=== PATIENT | male | born 1985 | race Two or more races ===

== ENCOUNTER 2018-03-28 14:12 | Emergency (ER) | payer OTHER ==
[2018-03-28 14:24] VITALS: BP 125/58; PULSE 55; TEMP 97.8; BMI 30.8
--- NOTE | 2018-03-28 14:39 | PDOC ---
History of Present Illness - General Chief Complaint: Pain Stated Complaint: UPPER GI PAIN Time Seen by Provider: 03/28/18 14:26 History Source: Patient - History of Present Illness Timing/Duration: reports: other (1 month) Pain Radiation: reports: epigastric Past History - Past Medical History Allergies/Adverse Reactions: Allergies Allergy/AdvReac Type Severity Reaction Status Date / Time No Known Allergies Allergy Verified 03/28/18 14:24 Home Medications: Ambulatory Orders Ranitidine HCl [Zantac] 150 mg PO BID #30 tablet 03/28/18 COPD: No - Suicide/Smoking/Psychosocial Hx Smoking History: Never smoked Have you smoked in the past 12 months: No Information on smoking cessation initiated: No Hx Alcohol Use: No Drug/Substance Use Hx: No Review of Systems - Review of Systems Constitutional: No: Chills, Fever ABD/GI: No: Blood Streaked Bowels, Constipated, Diarrhea, Nausea, Rectal Bleeding, Vomiting, Tarry Stools : No: Dysuria, Flank Pain, Hematuria *Physical Exam - Vital Signs Last Vital Signs Temp Pulse Resp BP Pulse Ox 97.8 F 55 L 16 125/58 L 100 03/28/18 14:17 03/28/18 14:17 03/28/18 14:17 03/28/18 14:17 03/28/18 14:17 - Physical Exam General Appearance: Yes: Appropriately Dressed. No: Apparent Distress HEENT: positive: Normal Voice Neck: positive: Supple Respiratory/Chest: positive: Lungs Clear, Normal Breath Sounds. negative: Respiratory Distress Cardiovascular: positive: Regular Rate, S1, S2 Gastrointestinal/Abdominal: positive: Normal Bowel Sounds, Soft. negative: Tender, Distended, Guarding, Rebound Musculoskeletal: negative: CVA Tenderness Integumentary: positive: Dry, Warm Neurologic: positive: Fully Oriented, Alert, Normal Mood/Affect Moderate Sedation - Procedure Monitoring Vital Signs: Procedure Monitoring Vital Signs Temperature 97.8 F 03/28/18 14:17 Pulse Rate 55 L 03/28/18 14:17 Respiratory Rate 16 03/28/18 14:17 Blood Pressure 125/58 L 03/28/18 14:17 O2 Sat by Pulse Oximetry (%) 100 03/28/18 14:17 Medical Decision Making - Medical Decision Making 03/28/18 14:36 32-year-old male, denies past medical history, here with epigastric pain. Patient reports intermittent epigastric pain that started one year ago after eating spicy food. States at that time, pain lasted for a month and resolved once patient changed his diet to mostly vegan. States for the past month has slowly resumed regular diet and has noticed that pain has since recurred, unable to describe, intermittent, located to epigastric area, does not radiate, and associated with excessive burping. States his father gave him a dose of Zantac yesterday which significantly improved his symptoms. No nausea, vomiting , change in bowel movements, melena, BRBPR, fever or chills. Denies excessive alcohol or NSAID use. For unclear reasons, has not followed up with his PMD or been seen by GI. Pt states since he has been in ER, pain has significantly improved See exam Most likely gastritis/GERD Recurrent Stable and well pepito w/ benign abd -dose of zantac here -will dc w/ GI f/u at this time for further eval 03/28/18 15:18 03/28/18 15:19 *DC/Admit/Observation/Transfer Diagnosis at time of Disposition: Epigastric pain - Discharge Dispostion Disposition: HOME Condition at time of disposition: Improved - Prescriptions Prescriptions: Ranitidine HCl [Zantac] 150 mg PO BID #30 tablet - Referrals Referrals: Bartolo Danielson MD [Staff Physician] - - Patient Instructions Printed Discharge Instructions: DI for Gastritis Additional Instructions: Pleas take medications as directed and follow up with Dr Danielson of GI for possible endoscopy - Post Discharge Activity Forms/Work/School Notes: Back to Work
[2018-03-28] MEDS ORDERED: RANITIDINE HCL 150 MG TABLET (FP) ONE (15:13)
[2018-03-28] MEDS ORDERED: RANITIDINE HCL 150 MG TABLET (FP) PO ONE (15:20)
== END 2018-03-28 15:47 | disposition home or self-care (01) ==
LOC: JER 14:12
DX: R10.13 Epigastric pain (principal)
CPT/HCPCS: 99282-25

== ENCOUNTER 2024-07-14 07:12 | Day surgery (SDC) | payer OTHER ==
[2024-07-13 11:59] VITALS: BMI 35.2
[2024-07-14 10:24] VITALS: TEMP 98.2
[2024-07-14 10:52] VITALS: RESP 17
[2024-07-14 10:54] VITALS: BP 107/63; PULSE 71
== END 2024-07-14 11:02 | disposition home or self-care (01) ==
LOC: JASU-ENDO 07:12
PROVIDERS: ATTEND Internal Medicine Gastroenterology
PROC: 0DBH8ZX Excision of Cecum, Via Natural or Artificial Opening Endoscopic, Diagnostic (ICD-10-PCS; principal; 2024-07-14 09:30)
DX: D12.0 Benign neoplasm of cecum (principal); K64.8 Other hemorrhoids
CPT/HCPCS: 88305-TC